=== PATIENT | male | born 1975 | race Caucasian/White ===

== ENCOUNTER → 2016-10-28 | Outpatient (CLI) | payer SELFPAY ==
--- NOTE | 2016-10-28 11:13 | DI ---
History: Right first metacarpal ORIF check. Procedure: 3 view. Prior study: 10/14/16. The findings: 2 fixation pins extend across a fracture of the base of the first metacarpal. Alignment and apposition of the fracture fragments is good. Only minimal angulation seen at one view. 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 Adjacent soft tissue appears normal. Impression: Satisfactory pinning of the fracture base right first metacarpal. Alignment is good Pins appear properly positioned. Prior amputation of the second digit and distal metacarpal as discussed above
== END ==
LOC: ORTHO 10:05
PROVIDERS: ATTEND Orthopaedic Surgery
DX: S62.511D Displaced fracture of proximal phalanx of right thumb, subsequent encounter for fracture with routine healing (principal)
CPT/HCPCS: 73140

== ENCOUNTER → 2016-11-10 | Outpatient (CLI) | payer SELFPAY ==
--- NOTE | 2016-11-10 16:00 | DI ---
RIGHT HAND, 11/10/2016 10:51 AM: Clinical History: Closed displaced fracture of the phalanx of the right thumb with routine healing. Previous Exam: 10/28/2016. 3 views through a thumb spica splint are submitted. The patient is status post ORIF of a fracture thr ough the proximal fourth of the first metacarpal bone. There has been progressive obliteration of the fracture site indicating healing. Alignment is are anatomic. There is no fracture of the phalanges. The patient is status post previous amputation through the midportion of the second metacarpal bone. Readin. Status post ORIF of the fracture of the proximal fourth of the first metacarpal bone with progres sive healing. 2. Alignment and position are anatomic. 3. There is no fracture of the proximal or distal phalanx of the thumb.
== END ==
LOC: ORTHO 10:57
PROVIDERS: ATTEND Orthopaedic Surgery
DX: S62.511D Displaced fracture of proximal phalanx of right thumb, subsequent encounter for fracture with routine healing (principal)
CPT/HCPCS: 73140

== ENCOUNTER → 2016-11-24 | Outpatient (CLI) | payer SELFPAY ==
--- NOTE | 2016-11-24 13:49 | DI ---
XR FINGERS MIN 2VW,11/24/2016 11:39 AM: Clinical History: Fracture of the proximal phalanx of the right thumb Previous Exam: November 10, 2016 Findings: 3 views of the right hand are obtained, and demonstrate postsurgical changes consistent with an amput ation of the right second mid metacarpal. There is a slightly displaced fracture of the right first proximal metacarpal. There has been interva l removal of percutaneous K wires. Impression: Healing fracture of the right first proximal metacarpal otherwise unremarkable.
== END ==
LOC: ORTHO 11:46
PROVIDERS: ATTEND Orthopaedic Surgery
DX: S62.231D Other displaced fracture of base of first metacarpal bone, right hand, subsequent encounter for fracture with routine healing (principal)
CPT/HCPCS: 73140

== ENCOUNTER → 2016-12-15 | Outpatient (CLI) | payer SELFPAY ==
--- NOTE | 2016-12-16 07:48 | DI ---
RIGHT THUMB EXAM, 12/15/2016 2:38 PM: Clinical History: Followup closed displaced fracture of the proximal phalanx of the right thumb. Previous Exam: 11/24/2016. 3 views are submitted. The nondisplaced fracture at the base of the first metacarpal bone shows perio steal new bone formation. The proximal and distal phalanges of the thumb are normal. The patient is s tatus post resection of the second ray at the level of the midshaft of the second metacarpal bone. Reading: Healing nondisplaced fracture of the proximal fourth of the first metacarpal bone.
== END ==
LOC: ORTHO 14:44
PROVIDERS: ATTEND Orthopaedic Surgery
DX: S62.511D Displaced fracture of proximal phalanx of right thumb, subsequent encounter for fracture with routine healing (principal)
CPT/HCPCS: 73140